=== PATIENT | male | born 1990 ===

== ENCOUNTER 2017-04-19 00:43 | Emergency (ER) | payer BC, OTHER ==
[2017-04-19] MEDS ORDERED: IBUPROFEN 400 MG TABLET PO ONE (00:57)
[2017-04-19] MEDS ORDERED: ACETAMINOPHEN 500 MG TABLET PO ONE (01:00)
--- NOTE | 2017-04-19 01:02 | Emergency Department Record ---
History of Present Illness - General Stated Complaint: FEVER/CONGESTION Time Seen by Provider: 04/19/17 00:57 Source: Patient Mode of Arrival: Ambulatory Limitations: No limitations - History of Present Illness Initial Comments: 26 yo male presents to ED with a CC of fever, body aches, fatigue, non- productive cough, and headache symptoms. Patient denies stiff neck symptoms, denies health problems at his baseline. Patient denies specific ill contacts, but reports numerous children around him that are intermittently ill. Patient denies nausea, vomiting, abdominal pain, chest pain, or urinary symptoms. MD Complaint: Cough, Fever Onset/Timin -: Week(s) Severity: Moderate Quality: Aching Consistency: Constant Improves With: NSAID Worsens With: Nothing Context: Sick contacts Associated Symptoms: Cough, Headache Treatments Prior to Arrival: Ibuprofen - Related Data Allergies Allergy/AdvReac Type Severity Reaction Status Date / Time Sulfa (Sulfonamide Allergy Unknown Unverified 06/30/16 16:00 Antibiotics) Review of Systems Constitutional: Reports: Fever, Malaise. Denies: Chills, Night sweats Eyes: Denies: Eye discharge, Eye pain, Photophobia ENT: Reports: Congestion. Denies: Ear pain, Epistaxis Respiratory: Reports: Cough. Denies: Dyspnea Cardiovascular: Denies: Chest pain, Dyspnea on exertion Endocrine: Denies: Fatigue, Heat or cold intolerance Gastrointestinal: Denies: Abdominal pain, Nausea, Vomiting Genitourinary: Denies: Incontinence, Retention Musculoskeletal: Denies: Arthralgia, Back pain, Gout, Joint swelling Skin: Denies: Bruising, Change in color Neurological: Reports: Headache. Denies: Abnormal gait, Confusion, Seizure Psychiatric: Denies: Anxiety Hematological/Lymphatic: Denies: Anemia, Blood Clots Physical Exam - General General Appearance: Alert, Oriented x3, Cooperative, Mild distress Limitations: No limitations - Head Head exam: Atraumatic, Normocephalic, Normal inspection Head exam detail: negative: Abrasion, Contusion, Kauffman's sign, General tenderness, Hematoma, Laceration - Eye Eye exam: Normal appearance, Conjunctival injection. negative: Periorbital swelling, Periorbital tenderness, Scleral icterus - ENT Ear exam: negative: Auricular hematoma, Auricular trauma Nasal Exam: negative: Active bleeding, Discharge, Dried blood, Foreign body Mouth exam: negative: Drooling, Laceration, Muffled voice, Tongue elevation Throat exam: negative: Tonsillar erythema, Tonsillomegaly, Tonsillar exudate, R peritonsillar mass, L peritonsillar mass - Neck Neck exam: Normal inspection. negative: Meningismus, Tenderness - Respiratory Respiratory exam: Normal lung sounds bilaterally. negative: Rales, Respiratory distress, Rhonchi, Stridor - Cardiovascular Cardiovascular Exam: Regular rate, Normal rhythm, Normal heart sounds - GI/Abdominal GI/Abdominal exam: Soft. negative: Rebound, Rigid, Tenderness - Rectal Rectal exam: Deferred - exam: Deferred - Extremities Extremities exam: Normal inspection. negative: Calf tenderness, Pedal edema, Tenderness - Back Back exam: Denies: CVA tenderness (R), CVA tenderness (L) - Neurological Neurological exam: Alert, Normal gait, Oriented X3 - Psychiatric Psychiatric exam: Normal affect, Normal mood - Skin Skin exam: Normal color. negative: Abrasion Type of lesion: negative: abrasion Course - Reevaluation(s) Reevaluation #1: 04/19/17 01:35 Influenza: Negative Reevaluation #2: 04/19/17 01:55 CXR reviewed and appears negative. Temperature down to 101, reports that his headache symptoms are improved but not gone. Will reassess. Reevaluation #3: 04/19/17 02:40 Patient reassessed and reports that his headache symptoms are greatly improved. Patient has no meningeal signs on examination. Pharynx appears normal ( patient denies ST). Patient has no clinical evidence for bacterial infection on examination, and appears stable for discharge aith continued symptomatic treatment of his fever symptoms. Disposition Disposition: Discharge Clinical Impression: Fever Qualifiers: Fever type: unspecified Qualified Code(s): R50.9 - Fever, unspecified Disposition: Home, Self-Care Condition: (2) Stable Instructions: Fever in Adults (ED) Additional Instructions: Return to ED if your symptoms worsen or if you have any concerns. Motrin and Tylenol for fever symptoms. Follow-up with your family doctor in 1-3 days as directed. Time of Disposition: 02:43 Quality - Quality Measures Quality Measures: N/A - Blood Pressure Screening Does Patient Have Any of the Following: No Blood Pressure Classification: Pre-Hypertensive BP Reading Systolic Measurement: 127 Diastolic Measurement: 76 Screening for High Blood Pressure: < Pre-Hypertensive BP, F/U Documented > [ [id number]] Pre-Hypertensive Follow-up Interventions: Referral to alternative/primary care provider.
[2017-04-19 01:28] LABS: INFLUENZA A NEGATIVE (NEGATIVE); INFLUENZA B NEGATIVE (NEGATIVE)
--- NOTE | 2017-04-20 09:55 | RADIOLOGY REPORT ---
EXAM: CHEST, TWO VIEWS HISTORY: FEVER AND CHILLS. COUGH. TECHNIQUE: PA and lateral upright views of the chest were obtained. Comparison: 06/30/16. FINDINGS: The heart, mediastinum, and pulmonary vasculature are normal. The lungs are clear. There is no pneumothorax or effusion. The bones are unremarkable. IMPRESSION: NEGATIVE CHEST EXAMINATION. JOB NUMBER: [id number] MTDD
== END 2017-04-19 02:53 | disposition home or self-care (01) ==
LOC: ER 00:43
DX: R50.9 Fever, unspecified (principal); R05 Cough; R51 Headache; R53.83 Other fatigue
CPT/HCPCS: 71020; 87400; 99283